=== PATIENT | male | born 1975 | race Caucasian/White ===

== ENCOUNTER 2024-11-22 07:35 | Outpatient (CLI) | payer OTHER ==
[~2024-11-22 07:35] MED LIST: AMOX1TAB12 PO
== END 2024-11-22 07:44 | disposition home or self-care (01) ==
LOC: RAD 07:35
DX: M79.642 Pain in left hand (principal); M79.641 Pain in right hand

== ENCOUNTER → 2024-11-28 | Emergency (ER) | payer OTHER ==
[~2024-11-28] VITALS: Ht 167.6 cm; Wt 83.0 kg
[~2024-11-28] MED LIST changes: +0.9 % SODIUM CHLORIDE 1,000 ML IV STA; +DEXTROSE 50 % IN WATER 0.5 G/ML VIAL IV ONE; +FLUMAZENIL 0.5 MG/5 ML ML IV ONE; +NALOXONE HCL 0.4 MG/ML AMPUL IV ONE; +THIAMINE HCL 100 MG/ML 2 ML VIAL IV ONE
[2024-11-28 19:31] LABS: HEMATOCRIT 41.9 % (39.0-48.0); HEMOGLOBIN 13.9 g/dL (13-16.00); MEAN CORPUSCULAR HEMOGLOBIN 31.7 pg (27.00-32.0); MEAN CORPUSCULAR HGB CONC 33.1 g/dl (32.0-36.0); PLATELET COUNT 293 K/uL (150-450); RED BLOOD COUNT 4.37 M/uL (4.00-6.00); RED CELL DISTRIBUTION WIDTH 14.2 % (11.5-14.5)
[2024-11-28 20:22] LABS: ALBUMIN 4.2 gm/dL (3.4-5.0); BILIRUBIN TOTAL 0.61 mg/dL (0.3-1.2); CREATININE SERUM 0.81 mg/dL (0.70-1.30); GFR 100.87; POTASSIUM 3.34 mEq/L (3.5-5.1); TOTAL PROTEIN 8.2 gm/dL (6.4-8.2)
[2024-11-28 21:34] LABS: PH,URINE 5.5 (5.0-8.0); URINE APPEARANCE Clear; URINE BILIRRUBIN Negative (NEGATIVE); URINE BLOOD Negative; URINE COLOR Yellow; URINE GLUCOSE Negative (NEGATIVE); URINE KETONE 15 (NEGATIVE); URINE LEUKOCYTE Negative; URINE NITRATE Negative; URINE PROTEIN Trace (NEGATIVE); URINE UROBILINOGEN 0.2 E.U./dl
[2024-11-28 21:38] LABS: URINE BACTERIA 6.1 uL (0.0-1933); URINE EPITHELIAL CELLS 2.9 uL (0.0-38.8); URINE WBC 9.1 uL (0.0-23.2)
[2024-11-28 21:42] LABS: URINE CAST 0.73 uL (0.0-1.40); URINE RBC 1.1 uL (0.0-20.8)
[2024-11-28 21:58] LABS: COCAINE POSITIVE (NEGATIVE); METHADONE NEGATIVE (NEGATIVE); OPIATES NEGATIVE (NEGATIVE); THC ( Cannabinoids) NEGATIVE (NEGATIVE)
== END | disposition home or self-care (01) ==
LOC: ER 18:30
PROVIDERS: Emergency Medicine
DX: F10.929 Alcohol use, unspecified with intoxication, unspecified (principal)